=== PATIENT | male | born 1950 | race Caucasian/White ===

== ENCOUNTER 2018-08-01 20:55 | Observation (INO) | payer MEDICARE ==
[~2018-08-01] VITALS: Ht 175.3 cm; Wt 99.6 kg
[~2018-08-01 20:55] MED LIST: ATORVASTATI80 MG/TAB PO; CHLORTHALID25 MG PO; DILTIAZEM240 MG PO; FLURAZEPAM HCL30 MG PO; GLIMEPIRIDE4 MG PO; HYDRALAZINE25 MG PO; HYDRALAZINE50 MG PO; LANTUS100 MG/ML SC; LASIX 20 MG20 MG/TAB PO; LOPRESSOR25 MG PO; METFORMIN500 MG PO; METOPROL TAR100 MG PO; PLAVIX75 MG PO; SINGLAIR 4 MG TA4 MG PO; TRICOR145 MG PO; VITAMIN D50000 UN1 PO; ZESTRIL30 MG PO
[2018-08-01 21:30] LABS: HEMATOCRIT 27.3 % (39.0-50.0); HEMOGLOBIN 9.4 g/dl (14.0-18.0); IMMATURE GRANULOCYTES 0.3 % (0.0-5.0); MEAN CELL VOLUME 89.2 fL CALC (80.0-100.0); MEAN CORPUSCULAR HGB 30.7 pG CALC (26.0-32.0); MEAN CORPUSCULAR HGB CONC 34.4 g/L CALC (32.0-36.0); NEUT# 4.2 thou/uL (1.82-7.42); RED BLOOD COUNT 3.06 mill/uL (4.70-6.10); RED CELL DISTRI WIDTH 13.7 % (11.5-15.5)
[2018-08-01] MEDS ORDERED: LOPID600 MG PO (21:40)
[2018-08-01] MEDS ORDERED: ISOSORB MONO120 MG PO (21:40)
[2018-08-01] MEDS ORDERED: LEVEMIR100 UNIT/M SC (21:41)
[2018-08-01] MEDS ORDERED: NITROGLYCERIN0.4 MG SL (21:43)
[2018-08-01 21:44] LABS: ANION GAP 17 (6-22 (CALC)); BILIRUBIN, TOTAL 0.3 mg/dL (0.0-1.4); BUN 37 mg/dL (8-23); BUN/CREATININE RATIO 15 (12-20 (CALC)); CARBON DIOXIDE 22 mmol/l (22-30); CHLORIDE 104 mmol/l (95-108); CREATININE 2.4 mg/dL (0.7-1.3); GFR 27 ML/MIN (>=60 (CALC)); GFR FOR AFR.AMER. 33 ML/MIN (>=60 (CALC)); POTASSIUM 4.5 mmol/l (3.5-5.1); SGOT/AST 22 u/l (19-48); SODIUM 138 mmol/l (137-146); TOTAL PROTEIN 7.7 g/dL (6.3-8.2)
[2018-08-01] MEDS ORDERED: NOVOLOG100 UNIT/M (21:44)
[2018-08-01 21:45] LABS: ALBUMIN 4.3 g/dL (3.2-5.0); ALKALINE PHOSPHATASE 95 u/l (38-126)
[2018-08-01] MEDS ORDERED: TRAMADOL HYDROC50 MG PO (21:45)
[2018-08-01] MEDS ORDERED: NORVASC5 M1 PO (21:46)
[2018-08-01] MEDS ORDERED: COREG12.5 MG PO (21:47)
[2018-08-01] MEDS ORDERED: LOSARTAN POT25 MG PO (21:47)
[2018-08-01 21:56] LABS: MYOGLOBIN 69 ng/mL (0 - 121)
[2018-08-01 23:19] VITALS: BP 158/77
[2018-08-02 04:00] VITALS: BP 124/66
[2018-08-02 07:15] VITALS: BP 158/67
== END 2018-08-02 13:15 | disposition home or self-care (01) ==
LOC: ED 20:55 → ED-I 22:20 → ED 22:39 → MS2 22:40
PROVIDERS: Emergency Medicine; ADMIT Internal Medicine; ATTEND Internal Medicine
DX: R07.9 Chest pain, unspecified (principal); I25.10 Atherosclerotic heart disease of native coronary artery without angina pectoris; I12.9 Hypertensive chronic kidney disease with stage 1 through stage 4 chronic kidney disease, or unspecified chronic kidney disease; N18.4 Chronic kidney disease, stage 4 (severe); E11.22 Type 2 diabetes mellitus with diabetic chronic kidney disease; D64.9 Anemia, unspecified; G47.33 Obstructive sleep apnea (adult) (pediatric); E78.5 Hyperlipidemia, unspecified; I48.0 Paroxysmal atrial fibrillation; E66.9 Obesity, unspecified; I25.2 Old myocardial infarction; Z86.74 Personal history of sudden cardiac arrest; Z95.5 Presence of coronary angioplasty implant and graft; Z95.1 Presence of aortocoronary bypass graft; Z87.891 Personal history of nicotine dependence

== ENCOUNTER 2019-10-28 | Emergency (ER) | payer MEDICARE ==
[~2019-10-28] MED LIST changes: +COREG12.5 MG PO; +ISOSORB MONO120 MG PO; +LEVEMIR100 UNIT/M SC; +LOPID600 MG PO; +LOSARTAN POT25 MG PO; +NITROGLYCERIN0.4 MG SL; +NORVASC5 M1 PO; +NOVOLOG100 UNIT/M; +TRAMADOL HYDROC50 MG PO
[2019-10-28] MEDS ORDERED: TRAZODONE50 MG PO (21:53)
[2019-10-28 21:56] LABS: HEMATOCRIT 31.3 % (39.0-50.0); HEMOGLOBIN 9.9 g/dl (14.0-18.0); IMMATURE GRANULOCYTES 0.4 % (0.0-5.0); MEAN CELL VOLUME 90.5 fL CALC (80.0-100.0); MEAN CORPUSCULAR HGB 28.6 pG CALC (26.0-32.0); MEAN CORPUSCULAR HGB CONC 31.6 g/L CALC (32.0-36.0); NEUT# 4.97 thou/uL (1.82-7.42); RED BLOOD COUNT 3.46 mill/uL (4.70-6.10); RED CELL DISTRI WIDTH 15.4 % (11.5-15.5)
[2019-10-28] MEDS ORDERED: [UNRECOGNIZED DRUG - CODE] IJ (22:00)
[2019-10-28 22:14] LABS: ALBUMIN 4.5 g/dL (3.2-5.0); BILIRUBIN, TOTAL 0.4 mg/dL (0.0-1.4)
[2019-10-28 22:17] LABS: CREATININE 5.4 mg/dL (0.7-1.3); POTASSIUM 5.3 mmol/l (3.5-5.1)
[2019-10-28 23:23] LABS: PROTHROMBIN TIME 10.6 SECONDS (9.0-12.5)
== END 2019-10-28 23:42 | disposition short-term general hospital (02) ==
PROVIDERS: Emergency Medicine
DX: R07.9 Chest pain, unspecified (principal); R79.89 Other specified abnormal findings of blood chemistry; E11.22 Type 2 diabetes mellitus with diabetic chronic kidney disease; N18.9 Chronic kidney disease, unspecified; I25.10 Atherosclerotic heart disease of native coronary artery without angina pectoris; I25.2 Old myocardial infarction; Z86.74 Personal history of sudden cardiac arrest; Z95.1 Presence of aortocoronary bypass graft; Z95.5 Presence of coronary angioplasty implant and graft; Z79.4 Long term (current) use of insulin
CPT/HCPCS: J1644

== ENCOUNTER 2019-12-09 | Emergency (ER) | payer MEDICARE ==
[~2019-12-09] MED LIST changes: +TRAZODONE50 MG PO; +[UNRECOGNIZED DRUG - CODE] IJ
[2019-12-09 10:12] LABS: HEMATOCRIT 24.2 % (39.0-50.0); HEMOGLOBIN 7.5 g/dl (14.0-18.0); IMMATURE GRANULOCYTES 0.3 % (0.0-5.0); MEAN CORPUSCULAR HGB 28.2 pG CALC (26.0-32.0); NEUT# 7.23 thou/uL (1.82-7.42); RED BLOOD COUNT 2.66 mill/uL (4.70-6.10); RED CELL DISTRI WIDTH 16.7 % (11.5-15.5)
[2019-12-09 10:30] LABS: INTERNATIONAL NORMALIZED RATIO 1.1 RATIO (0.7-1.3); PROTHROMBIN TIME 11.4 SECONDS (9.0-12.5)
[2019-12-09 10:39] LABS: ALBUMIN 3.8 g/dL (3.2-5.0); TOTAL PROTEIN 7.8 g/dL (6.3-8.2)
[2019-12-09 10:44] LABS: BILIRUBIN, TOTAL 1.1 mg/dL (0.0-1.4); CREATININE 5.2 mg/dL (0.7-1.3); POTASSIUM 3.9 mmol/l (3.5-5.1)
[2019-12-09 11:08] LABS: URINE BILIRUBIN - DIPSTICK NEGATIVE (NEGATIVE); URINE BLOOD DIPSTICK NEGATIVE (NEGATIVE); URINE COLOR YELLOW; URINE GLUCOSE - DIPSTICK NEGATIVE (NEGATIVE); URINE KETONE NEGATIVE (NEGATIVE); URINE LEUK ESTERASE NEGATIVE (NEGATIVE); URINE NITRITE - DIPSTICK NEGATIVE (Negative); URINE PROTEIN - DIPSTICK 100 mg/dL (NEG-TRACE); URINE SPECIFIC GRAVITY >=1.030; URINE UROBILINOGEN - DIPSTICK 0.2 E.U./dL (0.2)
[2019-12-09 11:11] LABS: TSH, 3RD GENERATION 4.87 uIU/mL (0.47 - 4.68)
[2019-12-09 11:14] LABS: URINE EPITHELIAL CELLS MODERATE EPI/hpf (0-FEW); URINE MUCUS MODERATE hpf (NONE-FEW)
[2019-12-09 12:35] VITALS: BP 119/58
[2019-12-09 12:52] VITALS: BP 115/60
[2019-12-09] MEDS ORDERED: ASPIRIN 81 LOW81 MG PO (12:55)
[2019-12-09] MEDS ORDERED: ASCORBIC ACD500 MG PO (12:55)
[2019-12-09] MEDS ORDERED: FERR SULFATE325 MG PO (12:55)
--- NOTE | 2019-12-10 11:24 | NUR ---
Recieved call from [facility] IC nurse, Emely who conveyed patient was in there facility with a positive COVID 19 swab. Confirmed Melissa Mahajan with [facility] was notified of the result. Informed we received positive results today of COVID 19 swab obtained 12/07/2019. Offer to fax results to [facility] was declined.
--- NOTE | 2019-12-10 11:31 | NUR ---
Patient first name, last name, and was verified with reciept of COVID 19 swab results.
--- NOTE | 2019-12-11 08:25 | NUR ---
PRELIMINARY BLOOD CX SHOUWS GRAM POSITIVE COCCI. SPOKE WITH NURSE ROJAS AT [facility] ICU, FAXED RESULTS TO [phone]
--- NOTE | 2019-12-12 08:12 | NUR ---
FINAL BLOOD CULTURE RESULTS FAXED TO [facility] ICU. SPOKE WITH NURSE RICHELLE. FAX # [phone]
== END 2019-12-09 13:09 | disposition short-term general hospital (02) ==
PROVIDERS: Family Medicine
PROC: 0CQ1XZZ Repair Lower Lip, External Approach (ICD-10-PCS; principal; 2019-12-09)
PROC: 30233N1 Transfusion of Nonautologous Red Blood Cells into Peripheral Vein, Percutaneous Approach (ICD-10-PCS; 2019-12-09)
DX: A41.89 Other specified sepsis (principal); U07.1 COVID-19; J12.89 Other viral pneumonia; D64.9 Anemia, unspecified; I50.9 Heart failure, unspecified; R19.5 Other fecal abnormalities; R79.89 Other specified abnormal findings of blood chemistry; E11.22 Type 2 diabetes mellitus with diabetic chronic kidney disease; N18.4 Chronic kidney disease, stage 4 (severe); S01.511A Laceration without foreign body of lip, initial encounter; S00.81XA Abrasion of other part of head, initial encounter; I25.2 Old myocardial infarction; W18.30XA Fall on same level, unspecified, initial encounter; Y92.009 Unspecified place in unspecified non-institutional (private) residence as the place of occurrence of the external cause; Z95.5 Presence of coronary angioplasty implant and graft; Z95.1 Presence of aortocoronary bypass graft; Z86.74 Personal history of sudden cardiac arrest; Z79.02 Long term (current) use of antithrombotics/antiplatelets; Z79.4 Long term (current) use of insulin
CPT/HCPCS: J0131; P9016

== ENCOUNTER 2022-08-03 14:38 | Emergency (ER) | payer MEDICARE ==
[~2022-08-03] VITALS: Ht 175.3 cm; Wt 92.9 kg
[~2022-08-03 14:38] MED LIST changes: +ASCORBIC ACD500 MG PO; +ASPIRIN 81 LOW81 MG PO; +FERR SULFATE325 MG PO
[2022-08-03 14:56] VITALS: BP 159/66
[2022-08-03 15:00] VITALS: BP 156/68
[2022-08-03 15:31] VITALS: BP 134/51
[2022-08-03 15:48] LABS: HEMATOCRIT 25.3 % (39.0-50.0); HEMOGLOBIN 8.4 g/dl (14.0-18.0); IMMATURE GRANULOCYTES 0.7 % (0.0-5.0); MEAN CORPUSCULAR HGB 32.9 pG CALC (26.0-32.0); MEAN CORPUSCULAR HGB CONC 33.2 g/dL CAL (32.0-36.0); NEUT# 3.39 thou/uL (1.82-7.42); RED BLOOD COUNT 2.55 mill/uL (4.70-6.10); RED CELL DISTRI WIDTH 14.4 % (11.5-15.5)
[2022-08-03 15:55] LABS: MEAN CELL VOLUME 99.2 fL CALC (80.0-100.0)
[2022-08-03 16:02] LABS: ALBUMIN 3.6 g/dL (3.2-5.0); TOTAL PROTEIN 7.5 g/dL (6.3-8.2)
[2022-08-03 16:08] LABS: BILIRUBIN, TOTAL 0.3 mg/dL (0.0-1.4)
[2022-08-03 16:09] LABS: CREATININE 6.5 mg/dL (0.7-1.3)
[2022-08-03 16:18] VITALS: BP 134/51
== END 2022-08-03 16:40 | disposition home or self-care (01) ==
LOC: ED 14:38
PROVIDERS: Family Medicine
DX: K42.9 Umbilical hernia without obstruction or gangrene (principal); E11.22 Type 2 diabetes mellitus with diabetic chronic kidney disease; N18.6 End stage renal disease; I25.10 Atherosclerotic heart disease of native coronary artery without angina pectoris; I25.2 Old myocardial infarction; Z95.1 Presence of aortocoronary bypass graft; Z95.5 Presence of coronary angioplasty implant and graft; Z86.74 Personal history of sudden cardiac arrest; Z86.73 Personal history of transient ischemic attack (TIA), and cerebral infarction without residual deficits; Z99.2 Dependence on renal dialysis; Z79.4 Long term (current) use of insulin

== ENCOUNTER 2022-09-26 07:19 | Emergency (ER) | payer MEDICARE ==
[2022-09-26] VITALS (14 sets, daily range): BP systolic 115–175; BP diastolic 49–68
[~2022-09-26] VITALS: Ht 175.3 cm; Wt 95.9 kg
[2022-09-26 08:39] LABS: BASO% 0.4 % (0-3); EOS% 1.9 % (0-8); HEMATOCRIT 27.7 % (39.0-50.0); HEMOGLOBIN 8.8 g/dl (14.0-18.0); IMMATURE GRANULOCYTES 0.4 % (0.0-5.0); LYMPH% 10.3 % (15-41); MEAN CELL VOLUME 101.5 fL CALC (80.0-100.0); MEAN CORPUSCULAR HGB 32.2 pG CALC (26.0-32.0); MEAN CORPUSCULAR HGB CONC 31.8 g/dL CAL (32.0-36.0); MONO% 8.2 % (2-13); NEUT# 7.1 thou/uL (1.82-7.42); NEUT% 78.8 % (42-76); RED BLOOD COUNT 2.73 mill/uL (4.70-6.10); RED CELL DISTRI WIDTH 13.2 % (11.5-15.5)
[2022-09-26 08:53] LABS: ALBUMIN 3.8 g/dL (3.2-5.0); ALKALINE PHOSPHATASE 77 u/l (38-126); ANION GAP 14 (6-22 (CALC)); BILIRUBIN, TOTAL 0.4 mg/dL (0.2-1.3); BUN 47 mg/dL (8-23); BUN/CREATININE RATIO 6 (12-20 (CALC)); CARBON DIOXIDE 22 mmol/l (22-30); CHLORIDE 106 mmol/l (95-108); GFR FOR AFR.AMER. 9 ML/MIN (>=60 (CALC)); GFR OTHER RACES 7 ML/MIN (>=60 (CALC)); LIPASE 133 u/l (23-300); POTASSIUM 4.8 mmol/l (3.5-5.1); SGOT/AST 24 u/l (19-48); SODIUM 137 mmol/l (137-146); TOTAL PROTEIN 7.3 g/dL (6.3-8.2)
[2022-09-26 08:55] LABS: CREATININE 7.4 mg/dL (0.7-1.3)
== END 2022-09-26 14:30 | disposition short-term general hospital (02) ==
LOC: ED 07:19
PROVIDERS: Emergency Medicine
DX: I50.9 Heart failure, unspecified (principal); J96.91 Respiratory failure, unspecified with hypoxia; I25.10 Atherosclerotic heart disease of native coronary artery without angina pectoris; I25.2 Old myocardial infarction; Z95.1 Presence of aortocoronary bypass graft; Z86.74 Personal history of sudden cardiac arrest; Z86.73 Personal history of transient ischemic attack (TIA), and cerebral infarction without residual deficits; E11.22 Type 2 diabetes mellitus with diabetic chronic kidney disease; N18.4 Chronic kidney disease, stage 4 (severe); Z99.2 Dependence on renal dialysis; Z79.4 Long term (current) use of insulin; Z20.822 Contact with and (suspected) exposure to COVID-19

== ENCOUNTER 2022-10-13 20:37 | Emergency (ER) | payer MEDICARE ==
[2022-10-13] VITALS (8 sets, daily range): BP systolic 110–143; BP diastolic 50–66
[~2022-10-13] VITALS: Ht 175.3 cm; Wt 87.0 kg
[2022-10-13 21:44] LABS: BASO% 0.4 % (0-3); EOS% 1.1 % (0-8); HEMATOCRIT 29.4 % (39.0-50.0); HEMOGLOBIN 9.4 g/dl (14.0-18.0); IMMATURE GRANULOCYTES 0.9 % (0.0-5.0); LYMPH% 9.2 % (15-41); MEAN CELL VOLUME 99.7 fL CALC (80.0-100.0); MEAN CORPUSCULAR HGB 31.9 pG CALC (26.0-32.0); MONO% 10.6 % (2-13); NEUT# 13.01 thou/uL (1.82-7.42); NEUT% 77.8 % (42-76); RED BLOOD COUNT 2.95 mill/uL (4.70-6.10); RED CELL DISTRI WIDTH 13.7 % (11.5-15.5)
[2022-10-13 21:50] LABS: PROTHROMBIN TIME 10.2 SECONDS (9.0-12.5)
[2022-10-13 21:52] LABS: ALBUMIN 3.9 g/dL (3.2-5.0); BILIRUBIN, TOTAL 0.5 mg/dL (0.2-1.3); POTASSIUM 4.1 mmol/l (3.5-5.1); TOTAL PROTEIN 7.8 g/dL (6.3-8.2)
[2022-10-13 22:04] LABS: CREATININE 8.9 mg/dL (0.7-1.3)
[2022-10-14] VITALS (41 sets, daily range): BP systolic 89–161; BP diastolic 41–75
[2022-10-14 08:12] LABS: URINE BILIRUBIN - DIPSTICK NEGATIVE (NEGATIVE); URINE BLOOD DIPSTICK TRACE-INTACT (NEGATIVE); URINE COLOR YELLOW; URINE GLUCOSE - DIPSTICK 100 mg/dL (NEGATIVE); URINE KETONE NEGATIVE (NEGATIVE); URINE LEUK ESTERASE NEGATIVE (NEGATIVE); URINE NITRITE - DIPSTICK NEGATIVE (Negative); URINE PROTEIN - DIPSTICK 100 mg/dL (NEG-TRACE); URINE UROBILINOGEN - DIPSTICK 0.2 E.U./dL (0.2)
[2022-10-14 08:13] LABS: URINE EPITHELIAL CELLS FEW EPI/hpf (0-FEW); URINE MUCUS MODERATE hpf (NONE-FEW); URINE RBC 0-2 RBC/hpf (0-5)
== END 2022-10-14 10:05 ==
LOC: ED 20:37 → ED-I 21:35 → ED 10-14 10:05
PROVIDERS: Emergency Medicine
DX: R53.1 Weakness (principal); I12.0 Hypertensive chronic kidney disease with stage 5 chronic kidney disease or end stage renal disease; E11.22 Type 2 diabetes mellitus with diabetic chronic kidney disease; N18.6 End stage renal disease; D63.1 Anemia in chronic kidney disease; I69.320 Aphasia following cerebral infarction; I25.10 Atherosclerotic heart disease of native coronary artery without angina pectoris; Z95.1 Presence of aortocoronary bypass graft; I25.2 Old myocardial infarction; Z95.5 Presence of coronary angioplasty implant and graft; Z86.74 Personal history of sudden cardiac arrest; Z99.2 Dependence on renal dialysis; Z79.4 Long term (current) use of insulin; Z20.822 Contact with and (suspected) exposure to COVID-19

== ENCOUNTER 2024-10-02 16:44 | Emergency (ER) | payer MEDICARE ==
[~2024-10-02] VITALS: Ht 175.3 cm; Wt 86.0 kg
[2024-10-02] VITALS (23 sets, daily range): BP systolic 106–172; BP diastolic 51–104
[2024-10-02] MEDS ORDERED: IPRATROPIUM-Albuterol 0.5MG-2.5MG/3 ML NEB ONE (16:55)
[2024-10-02] MEDS ORDERED: ASPIRIN 81 MG/TAB PO ONE (17:10)
[2024-10-02] MEDS ORDERED: NITROGLYCERIN 0.4 MG/TAB SL ONE (17:10)
[2024-10-02 17:22] LABS: BASO% 0.3 % (0-3); EOS% 2.1 % (0-8); HEMATOCRIT 26.6 % (39.0-50.0); HEMOGLOBIN 8.6 g/dl (14.0-18.0); IMMATURE GRANULOCYTES 0.6 % (0.0-5.0); LYMPH% 20.3 % (15-41); MEAN CELL VOLUME 103.1 fL CALC (80.0-100.0); MEAN CORPUSCULAR HGB 33.3 pG CALC (26.0-32.0); MEAN CORPUSCULAR HGB CONC 32.3 g/dL CAL (32.0-36.0); MONO% 8.2 % (2-13); NEUT# 7.48 thou/uL (1.82-7.42); NEUT% 68.5 % (42-76); RED BLOOD COUNT 2.58 mill/uL (4.70-6.10); RED CELL DISTRI WIDTH 15.8 % (11.5-15.5)
[2024-10-02 17:38] LABS: ALBUMIN 3.2 g/dL (3.2-5.0); MAGNESIUM 2.1 mg/dL (1.6-2.3); POTASSIUM 4.8 mmol/l (3.5-5.1); TOTAL PROTEIN 6.8 g/dL (6.3-8.2)
[2024-10-02 17:43] LABS: D-DIMER 1.2 mg/L (0.19-0.60)
[2024-10-02 17:44] LABS: BILIRUBIN, TOTAL 0.9 mg/dL (0.2-1.3); CREATININE 8.1 mg/dL (0.7-1.3)
[2024-10-02] MEDS ORDERED: FUROSEMIDE 40 MG/4 ML SDV IV ONE (17:55)
[2024-10-02 17:59] LABS: INTERNATIONAL NORMALIZED RATIO 0.9 RATIO (0.7-1.3)
[2024-10-02 18:03] LABS: PROTHROMBIN TIME 10.2 SECONDS (9.0-12.5)
[2024-10-02] MEDS ORDERED: Heparin SODIUM (Porcine) 500 ML IV ONE (18:10)
[2024-10-02] MEDS ORDERED: Heparin SODIUM (Porcine) 5,000 UNITS/ML SDV IV ONE (18:10)
[2024-10-02 21:33] LABS: URINE BILIRUBIN - DIPSTICK Negative (NEGATIVE); URINE BLOOD DIPSTICK Trace-lysed (NEGATIVE); URINE COLOR Yellow; URINE GLUCOSE - DIPSTICK 250 mg/dL (NEGATIVE); URINE KETONE Negative (NEGATIVE); URINE LEUK ESTERASE Negative (NEGATIVE); URINE NITRITE - DIPSTICK Negative (Negative); URINE PROTEIN - DIPSTICK >=300 mg/dL (NEG-TRACE); URINE SPECIFIC GRAVITY 1.015; URINE UROBILINOGEN - DIPSTICK 0.2 E.U./dL (0.2)
[2024-10-02 21:41] LABS: URINE RBC 0-2 RBC/hpf (0-5); URINE WBC 0-2 WBC/hpf (0-5)
== END 2024-10-02 22:16 ==
LOC: ED 16:44
PROVIDERS: Clinical Nurse Specialist Emergency
DX: I21.4 Non-ST elevation (NSTEMI) myocardial infarction (principal); I25.10 Atherosclerotic heart disease of native coronary artery without angina pectoris; I12.9 Hypertensive chronic kidney disease with stage 1 through stage 4 chronic kidney disease, or unspecified chronic kidney disease; E11.22 Type 2 diabetes mellitus with diabetic chronic kidney disease; N18.4 Chronic kidney disease, stage 4 (severe); F41.9 Anxiety disorder, unspecified; I69.320 Aphasia following cerebral infarction; I25.2 Old myocardial infarction; Z86.74 Personal history of sudden cardiac arrest; Z95.1 Presence of aortocoronary bypass graft; Z79.4 Long term (current) use of insulin; Z95.5 Presence of coronary angioplasty implant and graft; Z20.822 Contact with and (suspected) exposure to COVID-19
CPT/HCPCS: J1644; J1940